=== PATIENT | male | born 1975 | race Caucasian/White ===

== ENCOUNTER 2019-12-07 11:44 | Emergency (ER) | payer OTHER ==
[2019-12-07] MEDS ORDERED: MORPHINE SULFATE 4 MG/ML SYRINGE IVP STA (12:06)
--- NOTE | 2019-12-07 12:15 | XR ---
EXAMINATION TYPE: XR hand complete LT DATE OF EXAM: 12/07/2019 CLINICAL HISTORY: Laceration injury with pain. TECHNIQUE: Frontal, lateral and oblique images of the left hand are obtained. COMPARISON: None. FINDINGS: There is no acute fracture/dislocation evident in the left hand. Mild narrowing through out the PIP and DIP joints without significant spurring. The overlying soft tissue appears unremarka ble without suspicious radiodense foreign body seen. IMPRESSION: There is no acute fracture or dislocation in the left hand.
[2019-12-07] MEDS ORDERED: GELATIN SPONGE,ABSORB (SMALL) 1 EACH SPONGE TOPICAL STA (12:31)
[2019-12-07] MEDS ORDERED: DIPH,PERTUS(ACELL)TETVAC-LF 0.5 ML VIAL IM ONE (12:46)
[2019-12-07] MEDS ORDERED: CEPHALEXIN 500MG STARTER PACK 4 CAP BTL PO STA (12:46)
[2019-12-07] MEDS ORDERED: ACET/COD 300 MG/30 MG STARTER PACK 6 TAB BTL PO STA (13:03)
--- NOTE | 2019-12-07 13:09 | ED ---
General Adult HPI - General Chief complaint: Wound/Laceration Stated complaint: [facility] L Hand Injury Time Seen by Provider: 12/07/19 11:46 Source: EMS, RN notes reviewed Mode of arrival: EMS Limitations: no limitations - History of Present Illness Initial comments: 44-year-old male presents to the emergency department for a chief complaint of left finger pain. Patient reports that he got his fingers pinched in part of heavy machinery at his job. Patient reports that it was more the finger pads of his fingers that were pinched. Patient states it is painful. He denies any difficulty moving his fingers. Tetanus not up-to-date. Patient has no other complaints at this time including shortness of breath, chest pain, abdominal pain, nausea or vomiting, headache, or visual changes. - Related Data Previous Rx's Medication Instructions Recorded Cephalexin [Keflex] 500 mg PO Q6HR 7 Days #28 cap 12/07/19 Allergies Allergy/AdvReac Type Severity Reaction Status Date / Time No Known Allergies Allergy Verified 12/07/19 11:54 Review of Systems ROS Statement: Those systems with pertinent positive or pertinent negative responses have been documented in the HPI. ROS Other: All systems not noted in ROS Statement are negative. Past Medical History Past Medical History: Hypertension History of Any Multi-Drug Resistant Organisms: None Reported Past Surgical History: Orthopedic Surgery Past Psychological History: No Psychological Hx Reported Smoking Status: Current every day smoker Past Alcohol Use History: Rare Past Drug Use History: None Reported General Exam - General Exam Comments Initial Comments: Left third digit. Patient has a superficial avulsion injury to the superficial tissue of the finger pad of the left third digit. No injury to the nail bed. No injury to the rest of the finger. Capillary refill less than 2 seconds. Left fourth digit: Patient has superficical avulsion injury to the finger pad of the left fourth digit. However patient does have some bleeding also coming from under the nail left fourth digit. Nail bed appears intact. No deep lacerations noted. Capillary refill less than 2 seconds. Limitations: no limitations General appearance: alert, in no apparent distress Head exam: Present: atraumatic, normocephalic, normal inspection Eye exam: Present: normal appearance, PERRL, EOMI. Absent: scleral icterus, conjunctival injection, periorbital swelling ENT exam: Present: normal exam, mucous membranes moist Neck exam: Present: normal inspection. Absent: tenderness, meningismus, lymphadenopathy Respiratory exam: Present: normal lung sounds bilaterally. Absent: respiratory distress, wheezes, rales, rhonchi, stridor Cardiovascular Exam: Present: regular rate, normal rhythm, normal heart sounds. Absent: systolic murmur, diastolic murmur, rubs, gallop, clicks Course Vital Signs 12/07/19 12/07/19 11:47 13:38 Temperature 98.7 F 98.2 F Pulse Rate 100 73 Respiratory 16 18 Rate Blood Pressure 137/83 141/73 O2 Sat by Pulse 98 99 Oximetry Medical Decision Making - Medical Decision Making X-ray did show a tuft fracture of the left fourth digit. Wounds were cleaned with saline and Gelfoam was applied. Fingers were wrapped in gauze and a splint was applied to the left fourth digit given tuft fracture. Patient was started on antibiotics. He does have a fracture and avulsion injury. However I do not think these communicate. Avulsion injury is relatively superficial. Likely a closed fracture. Patient was given pain medication. He was updated on tetanus. He was given referral to orthopedics. He will return here for any worsening symptoms. Disposition Clinical Impression: Laceration, Open fracture of tuft of distal phalanx of finger Disposition: HOME SELF-CARE Condition: Good Additional Instructions: Alternate Motrin and Tylenol for pain. You may alternate these every [address] while taking Tylenol 3. Try to keep Gelfoam dry. Rest ice and elevate the hand. Follow-up with your ortho in one to 2 days. Referral given. Return to the emergency room for any worsening symptoms. Prescriptions: Cephalexin [Keflex] 500 mg PO Q6HR 7 Days #28 cap Is patient prescribed a controlled substance at d/c from ED?: No Referrals: Chuy Hightower MD [STAFF PHYSICIAN] - 1-2 days Time of Disposition: 13:08
[2019-12-07 13:39] VITALS: BP 141/73; PULSE 73; RESP 18; TEMP 98.2
== END 2019-12-07 13:39 | disposition home or self-care (01) ==
LOC: EC 11:44
DX: S62.635A Displaced fracture of distal phalanx of left ring finger, initial encounter for closed fracture (principal); S61.215A Laceration without foreign body of left ring finger without damage to nail, initial encounter; Z23 Encounter for immunization; I10 Essential (primary) hypertension; F17.200 Nicotine dependence, unspecified, uncomplicated; W31.9XXA Contact with unspecified machinery, initial encounter; Y92.69 Other specified industrial and construction area as the place of occurrence of the external cause; Y99.0 Civilian activity done for income or pay
CPT/HCPCS: 73130; 90715; 99283; 96374; 90471; J2270